=== PATIENT | female | born 1995 | race Caucasian/White ===

== ENCOUNTER 2017-02-18 08:52 | Inpatient (IN) | payer BC, OTHER ==
[~2017-02-18] VITALS: Ht 160 cm; Wt 82.4 kg
[2017-02-18 10:16] LABS: BASOPHIL COUNT 0.1 K/uL (0-0.1); EOSINOPHIL (%) 0.3 % (0-5); EOSINOPHIL COUNT 0.1 K/uL (0-0.3); HEMATOCRIT 45.3 % (36.0-46.0); IMMATURE GRANULOCYTE (%) 0.3 % (0.0-0.7); IMMATURE GRANULOCYTE COUNT 0.1 K/uL; INSTRUMENT ABS NEUTROPHIL CT 15.5 K/uL; LYMPHOCYTE COUNT 0.7 K/uL (1.0-2.8); MCH 26.7 PG (29.0-34.0); MCHC 33.3 G/DL (30.0-36.0); MCV 80.2 FL (83-99); MEAN PLAT.VOLUME 10.5 uM^3 (9.5-12.4); MONOCYTE (%) 5.4 % (3-12); MONOCYTE COUNT 0.9 K/uL (0-0.8); NEUTROPHIL (%) 89.5 % (45-76); NEUTROPHIL COUNT 15.5 K/uL (1.8-6.4); PLATELET COUNT 335 K/uL (156-360); RBC DIS.WIDTH-CV 12.2 % (11.8-14.6); RBC DIS.WIDTH-SD 35.1 % (39-53); RED BLOOD COUNT 5.65 M/uL (3.80-5.20); WHITE BLOOD COUNT 17.3 K/uL (4.1-10.2)
[2017-02-18 10:27] LABS: ADD MIUA? YES; BILIRUBIN NEGATIVE; BLOOD NEGATIVE; COLOR AMBER ((YELLOW)); GLUCOSE (STRIP) NEGATIVE; KETONES 20; LEUKOCYTES LARGE; NITRITE NEGATIVE; PROTEIN (STRIP) 100; SPECIFIC GRAVITY 1.031 (1.000-1.030); UROBILINOGEN 0.2 MG/DL (0.2-1.0)
[2017-02-18 10:38] LABS: QUANTITATIVE HCG < 4.0 MIU/ML
[2017-02-18 10:50] LABS: BACTERIA RARE /HPF; CALCIUM OXALATE CRYSTALS 2+ /HPF; EPITHELIAL CELLS 4+ /HPF; MUCUS 4+ /LPF; WHITE BLOOD CELLS 20-30 /HPF (0-5)
[2017-02-18 11:02] LABS: ANION GAP 17 MEQ/L (2-14); CHLORIDE 105 MEQ/L (99-109); POTASSIUM 3.7 MEQ/L (3.7-5.4); SAMPLE HEMOLYSIS CHECK 0; SAMPLE ICTERIC CHECK 0; SAMPLE LIPEMIA CHECK 0; SODIUM 139 MEQ/L (136-147); TOTAL BILIRUBIN 0.3 MG/DL (0.0-1.0)
[2017-02-18 11:08] LABS: ALKALINE PHOSPHATASE 63 IU/L (3-129); GFR ESTIMATE (CALCULATED) > 59 mL/min/; GLUCOSE 120 mg/dL (70-99); UREA NITROGEN (BUN) 14 mg/dL (9-23)
[2017-02-18] MEDS ORDERED: TRAZODONE HCL50 MG PO (15:12)
[2017-02-18] MEDS ORDERED: LORYNA 3 MG-0.1 EACH PO (15:13)
[2017-02-18] MEDS ORDERED: CLONAZEPAM0.5 MG PO (15:13)
[2017-02-18] MEDS ORDERED: EPIPEN ADU0.3 MG/0.3 IM (15:14)
[2017-02-18] MEDS ORDERED: CITALOPRAM HBR40 MG PO (15:14)
[2017-02-18] MEDS ORDERED: FLOVENT 11120 INHALA IH (15:15)
[2017-02-18] MEDS ORDERED: ZYRTEC10 M3 PO (15:18)
[2017-02-18] MEDS ORDERED: VENTOLIN HFA18 GM IH (15:18)
[2017-02-18 19:00] VITALS: BP 113/57
[2017-02-18 21:08] LABS: INFLUENZA A VIRAL ANTIGEN NEGATIVE; INFLUENZA B VIRAL ANTIGEN NEGATIVE
[2017-02-18 23:12] LABS: C DIFF TOXIN NEGATIVE (NEGATIVE)
[2017-02-18 23:19] LABS: PROBE CHECK PASS; SPECIMEN PROCESSING CONTROL PASS
[2017-02-19 00:42] VITALS: BP 102/54
[2017-02-19 03:42] VITALS: BP 100/57
[2017-02-19 06:39] LABS: ANION GAP 9 MEQ/L (2-14); CHLORIDE 110 MEQ/L (99-109); GFR ESTIMATE (CALCULATED) > 59 mL/min/; GLUCOSE 96 mg/dL (70-99); POTASSIUM 3.6 MEQ/L (3.7-5.4); SAMPLE HEMOLYSIS CHECK 0; SAMPLE ICTERIC CHECK 0; SAMPLE LIPEMIA CHECK 0; SODIUM 140 MEQ/L (136-147); UREA NITROGEN (BUN) 6 mg/dL (9-23)
[2017-02-19 07:23] LABS: HEMATOCRIT 35.1 % (36.0-46.0); MCH 26.7 PG (29.0-34.0); MCV 80.7 FL (83-99); RBC DIS.WIDTH-CV 12.5 % (11.8-14.6); RBC DIS.WIDTH-SD 36.3 % (39-53)
[2017-02-19 07:35] LABS: RED BLOOD COUNT 4.35 M/uL (3.80-5.20); WHITE BLOOD COUNT 6.1 K/uL (4.1-10.2)
[2017-02-19 09:23] VITALS: BP 111/61
[2017-02-19 11:11] LABS: MEAN PLAT.VOLUME 10.2 uM^3 (9.5-12.4); PLAT.SUFFICIENCY ADEQUATE; PLATELET COUNT 217 K/uL (156-360)
[2017-02-19 11:25] VITALS: BP 113/65
[2017-02-19 16:20] VITALS: BP 114/67
[2017-02-19 19:00] VITALS: BP 103/58
[2017-02-20 00:15] VITALS: BP 112/60
[2017-02-20 08:40] VITALS: BP 112/64
[2017-02-20 11:19] VITALS: BP 109/69
[2017-02-20] MEDS ORDERED: OMNICEF300 MG PO (12:14)
== END 2017-02-20 13:23 | disposition home or self-care (01) | DRG 392 ==
LOC: EME 08:52 → EDOF 14:29 → 5WEST 14:29
PROVIDERS: Emergency Medicine; Internal Medicine; Physician Assistant Medical
DX: A08.4 Viral intestinal infection, unspecified (principal); F84.5 Asperger's syndrome; E87.2 Acidosis; F41.9 Anxiety disorder, unspecified; E28.2 Polycystic ovarian syndrome; K20.0 Eosinophilic esophagitis; R00.0 Tachycardia, unspecified; R06.82 Tachypnea, not elsewhere classified; J45.909 Unspecified asthma, uncomplicated; E86.0 Dehydration
CPT/HCPCS: 71020; 74176; 80048; 80053; 81003; 84702; 85025; 85027; 87086; 87493; 87502; 87506; 94640; 94640 76; 99202; 99281; 99285; G0378; J0696; J1885; J2405; J7030; J7050; S0028

== ENCOUNTER 2017-12-23 13:35 | Emergency (ER) | payer OTHER ==
[~2017-12-23] VITALS: Ht 160 cm; Wt 79.6 kg
[~2017-12-23 13:35] MED LIST: CITALOPRAM HBR40 MG PO; CLONAZEPAM0.5 MG PO; EPIPEN ADU0.3 MG/0.3 IM; FLOVENT 11120 INHALA IH; LORYNA 3 MG-0.1 EACH PO; OMNICEF300 MG PO; TRAZODONE HCL50 MG PO; VENTOLIN HFA18 GM IH; ZYRTEC10 M3 PO
[2017-12-23] MEDS ORDERED: MOTRIN600 MG PO (15:30)
[2017-12-23 15:32] VITALS: BP 123/86
== END 2017-12-23 15:47 | disposition home or self-care (01) ==
LOC: EME 13:35
DX: J01.90 Acute sinusitis, unspecified (principal); J45.909 Unspecified asthma, uncomplicated; F32.9 Major depressive disorder, single episode, unspecified; K21.9 Gastro-esophageal reflux disease without esophagitis; F41.9 Anxiety disorder, unspecified
CPT/HCPCS: 99281; 99284